=== PATIENT | male | born 1985 | race Caucasian/White ===

== ENCOUNTER 2021-06-21 07:50 | Emergency (ER) | payer SELFPAY ==
--- NOTE | 2021-06-21 08:18 | EDM.PDOC ---
ED HPI GENERAL MEDICAL PROBLEM - General Chief Complaint: ENT Problem Stated Complaint: BILATERAL EAR PAIN Time Seen by Provider: 06/21/21 08:06 - History of Present Illness INITIAL COMMENTS - FREE TEXT/NARRATIVE: 35-year-old male presents the emergency room with progressive hearing loss. Patient states he had worsening hearing for the last several months. He has tried different remedies to get debris out of his ears. He is tried over the counter counter eardrops, these caused significant pain in the right ear. But he has been able to pull a lot of debris out of his ears however his hearing is not any better. Patient denies any fevers - Related Data Allergies Allergy/AdvReac Type Severity Reaction Status Date / Time No Known Allergies Allergy Verified 06/21/21 08:04 Home Meds: Home Meds Ciprofloxacin HCl/Dexameth [Ciprodex Otic Suspension] 4 drop OT BID #7.5 ml 06/21/21 [Rx] Past Medical History - Past Health History Medical/Surgical History: Denies Medical/Surgical History Psychiatric History: Reports: Addiction Social & Family History - Tobacco Use Tobacco Use Status *Q: Current Every Day Tobacco User Years of Tobacco use: 15 Packs/Tins Daily: 2 - Alcohol Use Days Per Week of Alcohol Use: 7 Number of Drinks Per Day: 18 Total Drinks Per Week: 126 - Recreational Drug Use Recreational Drug Use: No ED ROS GENERAL - Review of Systems Review Of Systems: See Below Constitutional: Reports: No Symptoms HEENT: Reports: Ear Pain Respiratory: Reports: No Symptoms Cardiovascular: Reports: No Symptoms GI/Abdominal: Reports: No Symptoms ED EXAM, GENERAL - Physical Exam Exam: See Below Exam Limited By: No Limitations General Appearance: Alert, No Apparent Distress, Other (Patient is able to converse and have a reasonable conversation) Eye Exam: Bilateral Eye: Normal Inspection Ears: Other (He has a large piece of wax up against the tympanic membrane on the right but half of the tympanic membrane is visualized this could not be irrigated out. On the left I removed 2 large pieces of wax. He has what looks like it external otitis behind the wax between this and the tympanic membrane. ) Ear Exam: Bilateral Ear: TM Perforation (Not suspected in either ear the visualized portion of the left tympanic membrane appears intact) Course - Vital Signs Last Recorded V/S: Last Vital Signs Temp 35.9 C L 06/21/21 08:02 Pulse 110 H 08/09/21 08:02 Resp 18 06/21/21 08:02 BP 135/100 H 06/21/21 08:02 Pulse Ox 93 L 06/21/21 08:02 Departure - Departure Time of Disposition: 09:04 Disposition: Home, Self-Care 01 Clinical Impression: Cerumen debris on tympanic membrane of right ear, Excessive cerumen in left ear canal, External otitis of left ear - Discharge Information Referrals: PCP,None [Primary Care Provider] - Forms: ED Department Discharge Additional Instructions: Return to the emergency room with any questions problems or worsening symptoms You have been started on some eardrops use these only in the left ear 3-4 times daily for 1 week. This is been sent electronically to the [place] [facility] in the [employer] [facility]. Establish with a local physician I believe a lot of your hearing loss is more than just wax in ears and you will need a formal hearing evaluation. Follow-up with your regular physician here at the hospital clinical later this week Sepsis Event Note (ED) - Evaluation Sepsis Screening Result: No Definite Risk - Focused Exam Vital Signs: Vital Signs Temp Pulse Resp BP Pulse Ox 06/21/21 08:02 35.9 C L 110 H 18 135/100 H 93 L
== END 2021-06-21 09:30 | disposition home or self-care (01) ==
LOC: JD.ED 07:50
DX: H60.92 Unspecified otitis externa, left ear (principal); H61.23 Impacted cerumen, bilateral; Z72.0 Tobacco use
CPT/HCPCS: 99282; 99283

== ENCOUNTER 2021-11-01 01:11 | Emergency (ER) | payer SELFPAY ==
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
[2021-11-01] MEDS ORDERED: Sodium Chloride 0.9% 10 ML SDV FLUSH ONE (02:51)
[2021-11-01] MEDS ORDERED: Iopamidol 755 Mg/ML 100 ML Bottle IVPUSH ONE (02:51)
[2021-11-01] MEDS ORDERED: Sodium Chloride 0.9% 100 ML IV SCH (03:00)
--- NOTE | 2021-11-01 07:36 | CR ---
Chest: Portable view of the chest was obtained. Comparison: No prior chest imaging is available, subsequent chest CT was utilized. Findings: Heart size and mediastinum are normal. Lungs are clear with no acute parenchymal change. Bony structures are unremarkable. Impression: 1. Nothing acute is seen on portable chest x-ray. Diagnostic code #1
--- NOTE | 2021-11-01 07:40 | CT ---
CT chest Technique: Multiple axial sections through the chest were obtained. Intravenous contrast was utilized. Study has been performed as a pulmonary angiogram protocol. Comparison: Chest x-ray performed earlier on the same day (1:32 AM) Findings: Pulmonary arteries are fairly well opacified. No filling defects are seen to indicate discrete pulmonary embolism. Thoracic aorta shows no aneurysm. No mediastinal adenopathy is seen. No axillary adenopathy is noted. No pericardial thickening is seen. Diffuse fatty infiltration is noted within the liver. Visualized portions of the upper abdomen are otherwise unremarkable. Lung window settings were reviewed. No acute parenchymal process is seen. Bone window settings were obtained which show no acute osseous abnormality. Impression: 1. No findings of pulmonary embolism. 2. Fatty infiltration within the liver. 3. Nothing acute is otherwise seen on CT study of the chest. Diagnostic code #2 I agree with preliminary report from [facility], finalized on 11/01/21, 4:24 AM [employer]IOR [employer], code 1
== END 2021-11-01 05:18 | disposition home or self-care (01) ==
LOC: JD.ED 01:11
DX: S20.211A Contusion of right front wall of thorax, initial encounter (principal); R00.0 Tachycardia, unspecified; F17.210 Nicotine dependence, cigarettes, uncomplicated; Y04.0XXA Assault by unarmed brawl or fight, initial encounter
CPT/HCPCS: 36415; 71045; 71275; 80053; 80307; 83735; 84484; 85025; 93005; 99284; Q9967; 93010; 99285

== ENCOUNTER 2022-03-27 05:35 | Emergency (ER) | payer SELFPAY ==
[2022-03-27] MEDS ORDERED: Amoxicillin/Clavulanate K 875-125 MG Tab PO STA (06:07)
== END 2022-03-27 07:45 | disposition home or self-care (01) ==
LOC: JD.ED 05:35
DX: L02.414 Cutaneous abscess of left upper limb (principal); F17.210 Nicotine dependence, cigarettes, uncomplicated; Z79.899 Other long term (current) drug therapy; Z20.822 Contact with and (suspected) exposure to COVID-19
CPT/HCPCS: 87635; 99283; A9270; U0002

== ENCOUNTER 2024-06-17 13:45 | Emergency (ER) | payer SELFPAY ==
[2024-06-17] MEDS ORDERED: Sodium Chloride 0.9% 10 ML Syringe FLUSH PRN (13:59)
[2024-06-17 14:20] LABS: BASOPHILS ABSOLUTE AUTO 0.1 K/mm3 (0.0-0.2); BASOPHILS PERCENT AUTO 0.8 % (0.0-1.0); EOSINOPHILS ABSOLUTE AUTO 0.2 K/mm3 (0.0-0.4); EOSINOPHILS PERCENT AUTO 2.6 % (0.0-6.0); HEMATOCRIT 46.3 % (42.0-52.0); HEMOGLOBIN 15.9 gm/dl (14.0-18.0); IMMATURE GRAN ABSOLUTE AUTO 0.02 K/mm3 (0.00-0.05); IMMATURE GRAN PERCENT AUTO 0.3 % (0.0-0.4); LYMPHOCYTES ABSOLUTE AUTO 3.4 K/mm3 (1.0-4.8); LYMPHOCYTES PERCENT AUTO 43.2 % (24.0-44.0); MEAN CORPUSCULAR HEMOGLOBIN 31.2 pg (28.0-32.0); MEAN CORPUSCULAR HGB CONC 34.3 g/dl (32.0-36.0); MEAN CORPUSCULAR VOLUME 90.8 fl (83.0-99.0); MEAN PLATELET VOLUME 9.5 fl (9.4-12.4); MONOCYTES ABSOLUTE AUTO 0.7 K/mm3 (0.0-0.8); MONOCYTES PERCENT AUTO 8.8 % (0.0-8.0); NEUTROPHILS ABSOLUTE AUTO 3.5 K/mm3 (1.8-7.7); NEUTROPHILS PERCENT AUTO 44.3 % (41.0-71.0); PLATELET COUNT,PLT 107 K/mm3 (150-400); WHITE BLOOD CELL COUNT,WBC 7.94 K/mm3 (3.9-11.3)
[2024-06-17] MEDS: Sodium Chloride 0.9% 1,000 ML IV ONE (14:22)
[2024-06-17] MEDS: Diphtheria,Pertussis(Acell),Tetanus Vaccine 0.5 ML Syringe IM ONE (14:23)
[2024-06-17] MEDS: ceFAZolin 2 GM in Sodium Chloride 0.9% 50 ML IV ONE (14:23)
[2024-06-17] MEDS: HYDROmorphone 1 MG/ML Syringe IVPUSH ONE (14:23)
[2024-06-17 14:24] LABS: INR 0.97; PROTHROMBIN TIME 10.3 SECONDS (9.7-12.0)
[2024-06-17 14:25] LABS: PTT,PARTIAL THROMBOPLSTIN TIME 31.6 SECONDS (21.7-31.4)
[2024-06-17 14:26] LABS: A/G RATIO 0.7 (1-2); ALBUMIN 2.9 g/dl (3.4-5.0); ANION GAP 14.8 (5-15); BILIRUBIN TOTAL 0.4 mg/dL (0.2-1.0); BUN/CREATININE RATIO 6.7 (14-18); CALCIUM 8.5 mg/dL (8.5-10.1); CREATININE 0.6 mg/dL (0.7-1.3); EST CRCL DRUG DOSING (CG) 153.01 mL/min; POTASSIUM,K 3.8 mEq/L (3.5-5.1); PROTEIN TOTAL,TP 7.3 g/dl (6.4-8.2)
[2024-06-17] MEDS: Ketamine 200 MG/20 ML MDV ONE (15:04)
[2024-06-17] MEDS: Ketamine 200 MG/20 ML MDV IV ONE (15:06)
== END 2024-06-17 17:12 | disposition home or self-care (01) ==
LOC: JD.ED 13:45
DX: S81.812A Laceration without foreign body, left lower leg, initial encounter (principal); Z23 Encounter for immunization; Z86.16 Personal history of COVID-19; W19.XXXA Unspecified fall, initial encounter
CPT/HCPCS: 12006; 36415; 71045; 72170; 73590; 80053; 85025; 85610; 85730; 86850; 86900; 86901; 90471; 90715; 96365; 96375; 99284; J0690; J1170; J3490; J7030

== ENCOUNTER 2024-06-18 15:18 | Emergency (ER) | payer SELFPAY ==
[2024-06-18 17:11] LABS: HEMOGLOBIN 14.9 gm/dl (14.0-18.0); MEAN CORPUSCULAR HEMOGLOBIN 31.2 pg (28.0-32.0); MEAN CORPUSCULAR HGB CONC 34.7 g/dl (32.0-36.0); MEAN PLATELET VOLUME 9.9 fl (9.4-12.4); PLATELET COUNT,PLT 90 K/mm3 (150-400); RED BLOOD CELL COUNT 4.78 M/mm3 (4.52-5.90); WHITE BLOOD CELL COUNT,WBC 8.18 K/mm3 (3.9-11.3)
[2024-06-18 17:48] LABS: A/G RATIO 0.6 (1-2); ALBUMIN 2.9 g/dl (3.4-5.0); ANION GAP 13.8 (5-15); BAND PERCENT MAN 0 % (0-10); BASOPHILS PERCENT MAN 1 (0.2-1.2); BILIRUBIN TOTAL 1.1 mg/dL (0.2-1.0); BUN/CREATININE RATIO 3.3 (14-18); CALCIUM 9.1 mg/dL (8.5-10.1); CREATININE 0.6 mg/dL (0.7-1.3); EOSINOPHILS PERCENT MAN 1 % (0.8-7.0); EST CRCL DRUG DOSING (CG) 153.01 mL/min; ETHANOL BLOOD MEDICAL 0.03 gm% (0.00); LYMPHOCYTES % ATYPICAL MANUAL 0 %; LYMPHOCYTES PERCENT MAN 22 % (20-40); MONOCYTES PERCENT MAN 6 % (2-10); POTASSIUM,K 3.8 mEq/L (3.5-5.1); PROTEIN TOTAL,TP 7.6 g/dl (6.4-8.2); TSH 5.372 uIU/mL (0.358-3.74)
[2024-06-18 17:49] LABS: PLATELET COUNT ESTIMATE DECREASED
[2024-06-18 18:29] LABS: BARBITURATE SCREEN,URINE NEGATIVE (CUTOFF=200); BENZODIAZEPINES SCREEN,URINE NEGATIVE (CUTOFF=150); BUPRENORPHINE SCREEN,URINE NEGATIVE (CUTOFF=10); METHADONE SCREEN, URINE NEGATIVE (CUT0FF=200); METHAMPHETAMINES SCREEN, URINE NEGATIVE (CUTOFF=500); OXYCODONE SCREEN,URINE NEGATIVE (CUT0FF=100); THC SCREEN,URINE 20 NG/ML NEGATIVE (CUTOFF=50)
[2024-06-18 18:35] LABS: AMPHETAMINES SCREEN, URINE NEGATIVE (CUTOFF=500)
[2024-06-18] MEDS: LORazepam 1 MG Tab PO ONE (19:15)
[2024-06-18] MEDS: Ondansetron 4 MG Tab.DIS PO ONE (19:15)
[2024-06-18] MEDS: Acetaminophen 325 MG Tab PO ONE (20:27)
[2024-06-18] MEDS: Acetaminophen 325 MG Tab PO STA (23:24)
== END 2024-06-18 23:26 | disposition other institution (70) ==
LOC: JD.ED 15:18
DX: F10.10 Alcohol abuse, uncomplicated (principal); F17.210 Nicotine dependence, cigarettes, uncomplicated; Z86.16 Personal history of COVID-19
CPT/HCPCS: 36415; 80053; 80143; 80179; 80306; 80307; 84443; 85007; 85027; 93005; 99284; A9270; 93010; 99283

== ENCOUNTER 2024-07-14 16:51 | Emergency (ER) | payer SELFPAY ==
[2024-07-14] MEDS: Sulfamethoxazole/Trimethoprim 800-160 MG Tab PO ONE (19:28)
[2024-07-14 19:35] LABS: BASOPHILS ABSOLUTE AUTO 0.1 K/mm3 (0.0-0.2); BASOPHILS PERCENT AUTO 0.6 % (0.0-1.0); EOSINOPHILS ABSOLUTE AUTO 0.1 K/mm3 (0.0-0.4); EOSINOPHILS PERCENT AUTO 1.1 % (0.0-6.0); HEMATOCRIT 42.9 % (42.0-52.0); HEMOGLOBIN 14.7 gm/dl (14.0-18.0); IMMATURE GRAN ABSOLUTE AUTO 0.03 K/mm3 (0.00-0.05); IMMATURE GRAN PERCENT AUTO 0.3 % (0.0-0.4); LYMPHOCYTES ABSOLUTE AUTO 2.9 K/mm3 (1.0-4.8); LYMPHOCYTES PERCENT AUTO 27.2 % (24.0-44.0); MEAN CORPUSCULAR HEMOGLOBIN 30.9 pg (28.0-32.0); MEAN CORPUSCULAR HGB CONC 34.3 g/dl (32.0-36.0); MEAN CORPUSCULAR VOLUME 90.1 fl (83.0-99.0); MEAN PLATELET VOLUME 8.8 fl (9.4-12.4); MONOCYTES ABSOLUTE AUTO 0.8 K/mm3 (0.0-0.8); MONOCYTES PERCENT AUTO 7.1 % (0.0-8.0); NEUTROPHILS ABSOLUTE AUTO 6.9 K/mm3 (1.8-7.7); NEUTROPHILS PERCENT AUTO 63.7 % (41.0-71.0); PLATELET COUNT,PLT 124 K/mm3 (150-400); RED BLOOD CELL COUNT 4.76 M/mm3 (4.52-5.90); WHITE BLOOD CELL COUNT,WBC 10.77 K/mm3 (3.9-11.3)
[2024-07-14 19:56] LABS: A/G RATIO 0.7 (1-2); ALBUMIN 2.9 g/dl (3.4-5.0); ANION GAP 13.5 (5-15); BILIRUBIN TOTAL 0.2 mg/dL (0.2-1.0); C-REACTIVE PROTEIN 0.32 mg/dL (<0.30); CALCIUM 8.9 mg/dL (8.5-10.1); CREATININE 0.8 mg/dL (0.7-1.3); EST CRCL DRUG DOSING (CG) 114.76 mL/min; MAGNESIUM 1.8 mg/dL (1.8-2.4); POTASSIUM,K 3.5 mEq/L (3.5-5.1); PROTEIN TOTAL,TP 7.3 g/dl (6.4-8.2)
[2024-07-15] MEDS: Sulfamethoxazole/Trimethoprim 800-160 MG Tab PO ONE ×2 (10:15→13:05)
[2024-07-15] MEDS: LORazepam 1 MG Tab PO ONE (10:33)
== END 2024-07-15 13:05 | disposition home or self-care (01) ==
LOC: JD.ED 16:51
DX: L03.116 Cellulitis of left lower limb (principal); F10.229 Alcohol dependence with intoxication, unspecified; Z86.16 Personal history of COVID-19
CPT/HCPCS: 36415; 80053; 80307; 83735; 85025; 86140; 99284; A9270; 99283